=== PATIENT | male | born 1985 | race American Indian/Alaskan Native ===

== ENCOUNTER 2021-10-14 11:14 | Outpatient (REF) | payer OTHER, SELFPAY ==
[2021-10-14 14:44] LABS: Alanine Aminotransferase 32 U/L (0-40); Albumin Level 4.6 g/dL (3.5-5.0); Alkaline Phosphatase 73 U/L (39-117); Anion Gap 14 (12-20); Aspartate Amino Transferase 19 U/L (5-37); Bilirubin Total 0.4 mg/dL (0.0-1.0); Blood Urea Nitrogen 17 mg/dL (9-16); Calcium 9.7 mg/dL (8.4-10.2); Carbon Dioxide 25 mmol/L (22-29); Chloride 107 mmol/L (96-108); Cholesterol 256 mg/dL; Estimated Glomerular Filt Rate > 60; Glucose Fasting 109 mg/dL (60-99); HDL Cholesterol 50 mg/dL; LDL Cholesterol Calculated 173 mg/dl; Potassium 4.8 mmol/L (3.3-5.1); Sodium 141 mmol/L (135-145); Total Protein 7.6 g/dL (6.5-8.0); Triglycerides 166 mg/dL
[2021-10-14 14:48] LABS: Syphilis Screen Nonreactive (Nonreactive)
[2021-10-14 14:49] LABS: TSH reflex Free T4 0.38 uIU/mL (0.32-4.0)
[2021-10-15 08:52] LABS: HBS Num1 11.32 mIU/mL (0-7.99); ~Hepatitis C Antibody Nonreactive (Nonreactive)
[2021-10-15 09:09] LABS: HBc Num1 0.06 S/CO (0.00-0.79); HBsAGNum1 0.25 S/CO (0.00-0.99); HIV AB/AG Nonreactive (Nonreactive); HIV Num 1 0.07 S/CO (0.00-0.99); Hepatitis B Core Antibody Nonreactive (Nonreactive); Hepatitis B Surface Antigen Negative (Negative)
[2021-10-15 10:45] LABS: HBS Num2 10.58 mIU/mL (0-7.99); HBS Num3 10.85 mIU/mL (0-7.99); ~Hepatitis B Surface Antibody GRAYZONE (Nonreactive)
== END 2021-10-14 11:15 | disposition home or self-care (01) ==
LOC: HO.WFDLDS 11:14
PROVIDERS: Visit Provider Family Medicine
DX: Z00.00 Encounter for general adult medical examination without abnormal findings (principal); Z11.4 Encounter for screening for human immunodeficiency virus [HIV]
CPT/HCPCS: 36415; 80053; 80061; 84443; 86704; 86706; 86780; 86803; 87340; 87389

== ENCOUNTER 2021-11-05 09:57 | Outpatient (REF) | payer OTHER, SELFPAY ==
[2021-11-05 11:45] LABS: Estimated Average Glucose 105 mg/dL; Hemoglobin A1c % 5.3 %
[2021-11-05 12:00] LABS: Anion Gap 10 (12-20); Blood Urea Nitrogen 18 mg/dL (9-16); Calcium 9.7 mg/dL (8.4-10.2); Carbon Dioxide 28 mmol/L (22-29); Chloride 107 mmol/L (96-108); Estimated Glomerular Filt Rate > 60; Glucose Fasting 99 mg/dL (60-99); Potassium 4.1 mmol/L (3.3-5.1); Sodium 141 mmol/L (135-145)
[2021-11-11 14:21] LABS: Testosterone, Free 93.6 pg/mL (35.0-155.0); Testosterone, Total 373 ng/dL (250-1100)
== END 2021-11-05 09:58 | disposition home or self-care (01) ==
LOC: HO.WFDLDS 09:57
PROVIDERS: Visit Provider Family Medicine
DX: R53.83 Other fatigue (principal); R73.01 Impaired fasting glucose
CPT/HCPCS: 36415; 80048; 83036; 84402; 84403

== ENCOUNTER 2023-01-20 11:30 | Outpatient (REF) | payer BC, SELFPAY | END 2023-01-20 11:31 | disposition home or self-care (01) | LOC: HO.LNP 11:30 | PROVIDERS: Visit Provider Hospitalist | DX: Z13.89 Encounter for screening for other disorder (principal) ==

== ENCOUNTER 2023-01-21 08:10 | Outpatient (REF) | payer BC, SELFPAY ==
[2023-01-21 12:59] LABS: Influenza A PCR POSITIVE (Negative); Influenza B PCR NEGATIVE (Negative); Resp Syncy Virus RNA Qual PCR NEGATIVE (Negative); SARS COV2 PCR INHOUSE NEGATIVE (Negative)
== END 2023-01-21 08:11 | disposition home or self-care (01) ==
LOC: HO.LNP 08:10
PROVIDERS: Visit Provider Hospitalist
DX: R06.00 Dyspnea, unspecified (principal); R50.9 Fever, unspecified; Z20.822 Contact with and (suspected) exposure to COVID-19
CPT/HCPCS: 0241U

== ENCOUNTER 2023-02-18 09:53 | Outpatient (REF) | payer BC, SELFPAY ==
[2023-02-18 11:33] LABS: Appearance Urine Clear; Color Urine Yellow; Glucose Urine UA Negative (Negative); Leukocyte Esterase Urine Negative (Negative); Nitrite Urine Negative (Negative); Specific Gravity - Urine 1.015 (1.005-1.025); Urine Blood Negative (Negative); Urine Ketones Negative (Negative); Urine Protein Negative (Neg-Trace)
[2023-02-18 12:22] LABS: Alanine Aminotransferase 24 U/L (0-40); Albumin Level 4.5 g/dL (3.5-5.0); Alkaline Phosphatase 71 U/L (39-117); Anion Gap 11 (12-20); Aspartate Amino Transferase 18 U/L (5-37); Bilirubin Total 0.8 mg/dL (0.0-1.0); Blood Urea Nitrogen 13 mg/dL (9-16); Calcium 9.3 mg/dL (8.4-10.2); Carbon Dioxide 28 mmol/L (22-29); Chloride 106 mmol/L (96-108); Cholesterol 238 mg/dL; Estimated Glomerular Filt Rate > 60; Glucose Fasting 93 mg/dL (60-99); HDL Cholesterol 42 mg/dL; LDL Cholesterol Calculated 165 mg/dl; Potassium 4.1 mmol/L (3.3-5.1); Sodium 141 mmol/L (135-145); Total Protein 7.1 g/dL (6.5-8.0); Triglycerides 155 mg/dL
[2023-02-18 12:25] LABS: TSH reflex Free T4 0.69 uIU/mL (0.32-4.0)
[2023-02-18 12:33] LABS: Creatinine Urine 178.92 mg/dL; Microalbum/Creatinine Ratio Ur 10.6 ug/mg cr
== END 2023-02-18 09:54 | disposition home or self-care (01) ==
LOC: HO.WFDLDS 09:53
PROVIDERS: Visit Provider Family Medicine
DX: Z00.00 Encounter for general adult medical examination without abnormal findings (principal); I10 Essential (primary) hypertension
CPT/HCPCS: 36415; 80053; 80061; 81003; 82043; 84443

== ENCOUNTER 2023-07-27 08:20 | Outpatient (AMB) | payer BC, SELFPAY ==
--- NOTE | 2023-07-27 08:26 | AM.OFFWIN_ITS ---
Intake Vital Signs 07/27/23 08:33 Height 5 ft 6 in Weight 200 lb BMI 32.3 BP 132/88 Blood Pressure Location Lt brachial Position Sitting Respiration 15 Pulse 85 Pulse Source Pulse Oximeter Temp 98.5 F Temp Source Oral Pulse Oximetry (%) 97 Oxygen Delivery Method Room Air Intake Visit Reasons: fever, cough [phone] Intake Note: Patient presents with fever, cough, and fatigue for more than 7 days. Patient reports he has tried tylenol, advil, nyquil, dayquil, and robitussin with no relief. Patient Tobacco Use Status: Current someday Tobacco user Saturation Diver Required: No Allergies bee venom protein (honey bee) Allergy (Severe, Verified 07/27/23 08:36) Swelling HPI fever, cough [phone] HPI Details 38 y/o male presents with complaints of fever/cough. He reports symptoms for more than 7 days. HPI Comments History of Present Illness Details Documentation assistance for Al Zhao MD, was provided by Prasad Cade, Station Helper on 07/27/2023 8:53 AM WADE. I, Dr. Zhao, have read, observed, and verified documentation. [facility] Medical History ADD (attention deficit disorder) Asthma Social History Housing: House Alcohol intake: current Alcohol intake frequency: holidays/special occasions on ly Patient Tobacco Use Status: Current someday Tobacco user Tobacco use type: Cigarette Cigarettes Per Day: 0.5 e-Cigarette/Vaping Use: Never Used Current occupational status: employed Review of Systems Const Denies chills, Reports fatigue, Reports fever(s), Denies headache(s) and Denies weakness ENT Denies dizziness and Denies headache(s) Card Denies chest pain, Denies lightheadedness, Denies dyspnea and Denies other (Palpitations) Resp Reports cough, Denies dyspnea, Denies wheezing and Denies other ( shortness of breath) Musc Denies numbness and Denies tingling Neuro Denies dizziness, Denies headache(s), Denies numbness, Denies tingling, Denies paresthesias and Denies weakness Psych Denies anxiety and Denies depression Endo Reports fatigue Aller/Immun Denies wheezing Physical Exam Vital Signs: Last Vital Signs Temp 98.5 F 07/27/23 08:33 Pulse 85 07/27/23 08:33 Resp 15 07/27/23 08:33 BP 132/88 07/27/23 08:33 Pulse Ox 97 07/27/23 08:33 Oxygen Delivery Method Room Air 07/27/23 08:33 BMI result Body Mass Index 32.3 Const General: no acute distress and well developed Nutritional Appearance: well nourished Orientation/consciousness: patient oriented x3 HEENT Head: Yes normocephalic and Yes atraumatic Eyes General: appearance normal, both eyes and all related structures Pupils: Equal, round and reactive pupils present EOM: EOMs intact bilaterally Resp Other: Pops and squeaks in lower lung mcgregor Effort & Inspection: normal respiratory effort Cardio Rate: regular rate Rhythm: regular rhythm Heart sounds: S1 normal heart sound present, S2 normal heart sound present, no gallops, no murmurs and no rubs Neuro General: patient oriented x3 and gait normal Cranial nerves: Yes Equal, round and reactive pupils present Psych Affect: normal affect Assessment & Plan Assessment & Plan (1) Abnormal lung sounds: Code(s): R09.89 - Other specified symptoms and signs involving the circulatory and respiratory systems Plan: Coarse breath sounds throughout and abnormal lung sounds at left base Possible pneumonia Possible bronchitis Will give patient script for a Z-Paramjit and prednisone Checking chest x-ray Keep patient out of work for this week Also has testing for COVID/flu/RSV now pending (2) Viral illness: Code(s): B34.9 - Viral infection, unspecified Plan: Possible underlying viral illness As above, checking COVID/flu/RSV Orders: Orders SARS-CoV2/FLU/RSV Today B34.9 - Viral infection, unspecified, Z20.822 - Contact with and (suspected) exposure to COVID-19 XR chest 2V Today R09.89 - Other specified symptoms and signs involving the circulatory and respiratory systems Medications: New azithromycin (Zithromax Z-Paramjit) take 500 mg today (day 1), then 250 mg for 4 days (days 2-5) PO 6 tabs 0RF 5 days prednisone 40 mg (2 x 20 mg) PO DAILY 8 tabs 0RF 4 days Coding Level of Care Code Est Pt Level 3 (70783) Diagnoses Abnormal lung sounds R09.89 Viral illness B34.9
[2023-07-27 08:33] VITALS: BP 132/88; PULSE 85; RESP 15; TEMP 36.9; O2SAT 97; BMI 32.3
== END 2023-07-27 09:11 | disposition home or self-care (01) ==
PROVIDERS: PCP Family Medicine; Visit Provider Family Medicine
DX: R09.89 Other specified symptoms and signs involving the circulatory and respiratory systems (principal); B34.9 Viral infection, unspecified
CPT/HCPCS: 99213

== ENCOUNTER 2023-07-27 08:59 | Outpatient (REF) | payer BC, SELFPAY ==
[2023-07-27 12:22] LABS: Influenza A PCR NEGATIVE (Negative); Influenza B PCR NEGATIVE (Negative); Resp Syncy Virus RNA Qual PCR NEGATIVE (Negative); SARS COV2 PCR INHOUSE NEGATIVE (Negative)
== END 2023-07-27 09:00 | disposition home or self-care (01) ==
LOC: HO.LAB 08:59
PROVIDERS: Visit Provider Family Medicine
DX: Z20.828 Contact with and (suspected) exposure to other viral communicable diseases (principal); B34.9 Viral infection, unspecified
CPT/HCPCS: 0241U

== ENCOUNTER 2023-07-27 09:41 | Outpatient (REF) | payer BC, SELFPAY ==
--- NOTE | ~2023-07-27 | XR_ITS ---
EXAMINATION: XR CHEST CLINICAL INFORMATION: R09.89 - Other specified symptoms and signs involving the circulatory an... COMPARISON: None available. TECHNIQUE: 2 views of the chest were obtained. FINDINGS: No significant abnormality is noted involving the heart, lungs, mediastinum, bony thorax or soft tissues. XR/XR chest 2V IMPRESSION: Unremarkable examination.
== END 2023-07-27 09:42 | disposition home or self-care (01) ==
LOC: HO.XRAY 09:41
PROVIDERS: PCP Family Medicine; Visit Provider Family Medicine
DX: R09.89 Other specified symptoms and signs involving the circulatory and respiratory systems (principal)
CPT/HCPCS: 71046

== ENCOUNTER 2024-06-10 10:34 | Outpatient (AMB) | payer BC, SELFPAY ==
--- NOTE | 2024-06-10 11:47 | MHC.OFFWIV ---
Intake Vital Signs 06/10/24 11:50 Height 5 ft 5.79 in Weight 200 lb 6 oz BMI 32.5 BP 124/80 Blood Pressure Location Lt brachial Position Sitting Pulse 64 Pulse Source Pulse Oximeter Temp 98.3 F Temp Source Oral Pulse Oximetry (%) 97 Oxygen Delivery Method Room Air Intake Visit Reasons: est/ ear infection Intake Note: R/O right ear infection Patient Tobacco Use Status: Never used Tobacco Allergies bee venom protein (honey bee) Allergy (Severe, Verified 06/10/24 11:48) Swelling Medication List - Last Reconciled 06/10/24 by Trisha Doyle, [facility] albuterol sulfate 90 mcg/actuation (ProAir HFA) 2 puffs inhalation Q4-6H PRN 30 days dextroamphetamine-amphetamine 30 mg (Adderall) 30 mg PO BID epinephrine (EpiPen 2-Paramjit) 0.3 mg (0.3 mL) IM Q10M PRN 30 days omeprazole 20 mg PO DAILY 30 days sertraline (Zoloft) 50 mg PO BID Do you need a note to return to daycare/school/sports/work: No HPI HPI Comments History of Present Illness Details 39-YEAR-OLD MALE HERE TODAY IN THE WALK-IN WITH SEVERAL COMPLAINTS. First complaint is that of right ear pain that started a few weeks ago after becoming ill with an upper respiratory illness. He reports chronic and recurrent ear infections on the right side. He was followed by ENT in the past. He had some leftover antibiotics which he started to take over the last few days and has had some improvement in his symptoms. He is daily swimmer. Complains of obesity. Worried about his BMI being over 30. Brings in a pamphlet for Ozempic and wants to know if he is eligible to use this medication. Made aware that his BMI does not make him a candidate, educated about BMI. Encouraged healthy lifestyle and discouraged use of Ozempic. Asked if he could buy [id number] advised that there are people online schooling this product but I am unable to validate the quality of the products that he would be receiving. Finally he complains of chronic neck pain and tension associated with headaches related to stress. He has tried chiropractic medicine as well as massage in the past without relief. Takes ibuprofen 800 mg with some relief. Has used muscle relaxer in the past with positive effect. Denies neuro red flag symptoms exam: Awake alert NAD Sclera and conjunctiva clear bilat TM intact, bulging w/ loss of landmarks, diffuse erythema and purulence on R, EAC with edema and erythema. TM on left intact w mild injection, EAC clear Neck FROM [employer] build Plan: Augmentin and steroid eardrops for the otitis media. Education provided for obesity. Meloxicam and muscle relaxer for his neck pain. This note is constructed using voice recognition software. While every effort has been made to ensure accuracy in psychology assistant, still errors may have been included Sometimes, these errors may affect the content or meaning of the given sentence . [facility] Medical History ADD (attention deficit disorder) Asthma Social History Housing: House Alcohol intake: current Alcohol intake frequency: holidays/special occasions only Patient Tobacco Use Status: Never used Tobacco Tobacco use type: Cigarette Cigarettes Per Day: 0.5 e-Cigarette/Vaping Use: Never Used Current occupational status: employed Physical Exam Vital Signs: Last Vital Signs Temp 98.3 F 06/10/24 11:50 Pulse 64 06/10/24 11:50 BP 124/80 06/10/24 11:50 Pulse Ox 97 06/10/24 11:50 Oxygen Delivery Method Room Air 06/10/24 11:50 BMI result Body Mass Index 32.5 Assessment & Plan Assessment & Plan (1) Otitis media: Code(s): H66.90 - Otitis media, unspecified, unspecified ear Qualifiers: Otitis media type: mucoid Chronicity: acute Laterality: right Qualified Code(s): H65.191 - Other acute nonsuppurative otitis media, right ear (2) Tension headache, chronic: Code(s): G44.229 - Chronic tension-type headache, not intractable Qualifiers: Intractability: not intractable Qualified Code(s): G44.229 - Chronic tension-type headache, not intractable (3) Obesity, Class I, BMI 30-34.9: Code(s): E66.9 - Obesity, unspecified Plan: . Plan . Medications: New meloxicam 15 mg PO DAILY PRN 14 tabs 0RF pain dexamethasone 0.1% USE IN EAR 1 drp otic (ear) right BID 5 days 5 mL 0RF amoxicillin-pot clavulanate 875-125 mg 1 tab PO Q12H 10 days 20 tabs 0RF tizanidine (Zanaflex) 4 mg PO BEDTIME PRN 7 tabs 0RF muscle spasticity Coding Level of Care Code Est Pt Level 4 (62470) Diagnoses Acute mucoid otitis media of right ear H65.191 Otitis media type: mucoid Chronicity: acute Laterality: right Chronic tension-type headache, not intractable G44.229 Intractability: not intractable Obesity, Class I, BMI 30-34.9 E66.9
[2024-06-10 11:50] VITALS: BP 124/80; PULSE 64; TEMP 36.8; O2SAT 97; BMI 32.5
== END 2024-06-10 12:24 | disposition home or self-care (01) ==
PROVIDERS: PCP Family Medicine; Visit Provider Nurse Practitioner Family
DX: H65.191 Other acute nonsuppurative otitis media, right ear (principal); G44.229 Chronic tension-type headache, not intractable; E66.9 Obesity, unspecified; Z68.32 Body mass index [BMI] 32.0-32.9, adult
CPT/HCPCS: 99214

== ENCOUNTER 2025-04-26 11:29 | Outpatient (AMB) | payer BC, SELFPAY ==
--- NOTE | 2025-04-26 11:41 | MHC.PC.OV ---
Vital Signs 04/26/25 11:52 Height 5 ft 5.79 in Weight 193 lb BMI 31.3 BP 128/78 Blood Pressure Location Lt brachial Position Sitting Respiration 18 Pulse 87 Pulse Source Pulse Oximeter Temp 98.4 F Temp Source Oral Pulse Oximetry (%) 97 Oxygen Delivery Method Room Air Intake Visit Reasons: Problems Breathing Intake Note: patient is here to have glp-1 script transferred to pcp care Chip Separator Required: No Allergies bee venom protein (honey bee) Allergy (Severe, Verified 04/26/25 11:52) Swelling Medication List - Last Reconciled 04/26/25 by Al Zhao MD albuterol sulfate 90 mcg/actuation (ProAir HFA) 2 puffs inhalation Q4-6H PRN 30 days dextroamphetamine-amphetamine 30 mg (Adderall) 30 mg PO BID epinephrine (EpiPen 2-Paramjit) 0.3 mg (0.3 mL) IM Q10M PRN 30 days meloxicam 15 mg PO DAILY PRN omeprazole 20 mg PO DAILY 30 days semaglutide (weight loss) (Wegovy) 0.5 mg subcut QWEEK tizanidine (Zanaflex) 4 mg PO BEDTIME PRN Tobacco use date assessed: 10/14/21 HPI Problems Breathing HPI Details 40 y/o male presents today for a CPE with f/u labs and health maintenance. Pt is on Wegovy for his obesity. Currently on 0.5mg. Pt reports some difficulty breathing and does note hx of asthma. Reports R ankle pain. HPI Comments History of Present Illness Details Documentation assistance for Al Zhao MD, was provided by Prasad Cade,? Bailing Machine Operator on 04/26/2025 at 12:06 PM WADE. I, Dr. Zhao, have read, observed, and verified documentation. ? PFSH Medical History ADD (attention deficit disorder) Asthma Social History Housing: House Alcohol intake: current Alcohol intake frequency: holidays/special occasions only Patient Tobacco Use Status: Never used Tobacco Tobacco use type: Cigarette Cigarettes Per Day: 0.5 e-Cigarette/Vaping Use: Never Used Current occupational status: employed Questionnaire PHQ-9 Over the last 2 weeks, how often have you been bothered by any of the following problems? 1. Little interest or pleasure in doing things: not at all 2. Feeling down, depressed, or hopeless: not at all 3. Trouble falling or staying asleep, or sleeping too much: several days 4. Feeling tired or having little energy: several days 5. Poor appetite or overeating: several days 6. Feeling bad about yourself - or that you are a failure or have let yourself or your family down: not at all 7. Trouble concentrating on things, such as reading the newspaper or watching television: several days 8. Moving or speaking so slowly that other people could have noticed. Or the opposite - being so fidgety or restless that you have been moving around a lot more than usual: not at all 9. Thoughts that you would be better off or of hurting yourself in some way: not at all Total score: 4 Source: Developed by Drs. Dionte Charles, Martha Wheat, Michael Montano and colleagues, with an educational boo from [employer]. Thrive Questionnaire Date Thrive assessed: 10/14/21 I am a: Patient What is your living situation today?: I have a steady place to live Within the past 12 months, did the food you bought not last and you didn't have the money to get more?: Never true Within the past 12 months, did you worry whether your food would run out before you got money to buy more?: Never true Do you have trouble paying for medicines?: No Do you have trouble getting transportation to medical appointments?: No Do you have trouble paying your heating and electricity bill?: No Do you have trouble taking care of your child, family member or friend?: No Do you have trouble with day-to-day activities such as bathing, preparing meals, shopping, managing finances, etc.?: No Are you currently unemployed and looking for a job?: No Are you interested in more education?: No Please select the resources that you would like help with: None Currently or been in a relationship where the following occur: No concerns reported THRIVE Score: 0 AUDIT C Alcohol Use Questionnaire (AUDIT-C) 1. How often do you have a drink containing alcohol?: 2-4 times a month 2. How many drinks containing alcohol do you have on a typical day when you are drinking?: 1 or 2 3. How often do you have six or more drinks on one occasion?: Less than monthly Total Score: 3 RAHCELLE-7 AMB Questionnaire RACHELLE-7 Date RACHELLE - 7 assessed: 10/14/21 Feeling nervous, anxious, or on edge: 0 = Not at all Not being able to stop or control worryin = Not at all Worrying too much about different things: 0 = Not at all Trouble relaxin = Not at all Being so restless that it is hard to sit still: 0 = Not at all Becoming easily annoyed or irritable: 0 = Not at all Feeling afraid as if something awful might happen: 0 = Not at all Total RACHELLE-7 score (0-4 normal; 5-9 mild; 10-14 moderate; 15-21 severe): 0 Source: Developed by Drs. Dionte Charles, Martha Wheat, Michael Montano and colleagues, with an educational boo from [employer]. Review of Systems Const Denies chills, Denies fatigue, Denies fever(s), Denies headache(s) and Denies weakness Eyes Denies change in vision ENT Denies dizziness, Denies headache(s), Denies hearing loss, Denies nasal congestion, Denies sinus pain, Denies sinus pressure and Denies sore throat Card Denies chest pain, Denies lightheadedness, Denies dyspnea and Denies other (palpitations) Resp Denies cough, Denies dyspnea and Denies wheezing GI Denies abdominal pain, Denies melena, Denies hematochezia, Denies change in bowel habits, Denies dyspepsia and Denies nausea Denies hematuria and Denies dysuria Musc Denies abnormal gait, Denies myalgias, Denies arthralgias, Denies numbness and Denies tingling Skin/Breast Denies rash, Denies unusual bruising and Denies wounds Neuro Denies abnormal gait, Denies dizziness, Denies headache(s), Denies memory loss, Denies numbness, Denies Sensory deficit (Neuro), Denies tingling and Denies weakness Psych Denies anxiety, Denies depression and Denies memory loss Endo Denies cold intolerance, Denies fatigue, Denies heat intolerance, Denies polydipsia and Denies polyuria Sukhdev/Lymph Denies easy bleeding and Denies easy bruising Aller/Immun Denies wheezing Physical exam (Primary Care) Vital Signs: Last Vital Signs Temp 98.4 F 04/26/25 11:52 Pulse 87 04/26/25 11:52 Resp 18 04/26/25 11:52 BP 128/78 04/26/25 11:52 Pulse Ox 97 04/26/25 11:52 Oxygen Delivery Method Room Air 04/26/25 11:52 BMI result Body Mass Index 31.3 Tobacco/Smoking Status: Tobacco use Status Tobacco use date assessed 10/14/21 04/26/25 11:42 Patient Tobacco Use Status Never used Tobacco 04/26/25 11:42 Tobacco use type Cigarette 04/26/25 11:42 e-Cigarette/Vaping Use Never Used 04/26/25 11:42 PHQ-9: PHQ-9 Score PHQ-9: Total score 4 04/26/25 11:57 Thrive Assessment: Date of Thrive Assessment Date Thrive assessed 10/14/21 04/26/25 11:42 Currently or been in a relationship where the following occur: No concerns reported Const General: no acute distress, well developed, alert and awake Nutritional Appearance: well nourished Orientation/consciousness: patient oriented x3 HENMT Head: Yes normocephalic and Yes atraumatic Ears: hearing grossly normal bilaterally and TM's normal bilaterally General nose exam: Normal external nose present and Normal nares present Mouth: Normal oral and palatal mucosa present and moist mucous membranes Teeth and gingiva: dentition normal Throat: Yes posterior oropharynx normal Eyes General: appearance normal, both eyes and all related structures Pupils: Equal, round and reactive pupils present and Pupil accommodation reflex normal EOM: EOMs intact bilaterally Neck Neck: Yes normal visual inspection, Yes no lymphadenopathy and Yes trachea midline Thyroid: Thyroid normal Carotids: no bruits Lymphatic: no lymphadenopathy noted Chest Chest palpation & inspection: normal inspection of the chest Resp Other: Coarse breath sounds Effort & Inspection: normal respiratory effort Auscultation: clear to auscultation bilaterally Cardio Rate: regular rate Rhythm: regular rhythm Heart sounds: S1 normal heart sound present, S2 normal heart sound present, no gallops, no murmurs and no rubs Bruits: no abdominal aortic bruits and no carotid bruits GI Palpation (GI): No Abdominal aortic bruit present, Soft to palpation, nontender, No hepatosplenomegaly present and No Rebound tenderness present Auscultation: normal bowel sounds General: Yes no CVA tenderness Back/Spine/Pelvis Back: no CVA tenderness Cervical Spine: cervical ROM normal and No Cervical spine tenderness Thoracic/Lumbar Spine: thoraco-lumbar ROM normal, No pain with thoraco-lumbar ROM, No thoracic spinal tenderness and No lumbar spinal tenderness Skin Lesions: no lesions Rashes: no rashes Trauma: no lacerations or abrasions Wounds: no wounds Nails: normal Neuro General: patient oriented x3 Cranial nerves: Yes Equal, round and reactive pupils present Cognition (Neuro): normal cognition Gait exam (Neuro): Normal gait present Motor exam (neuro): 5/5 motor strength present throughout Sensory Exam: No Sensory deficit (Neuro) Deep tendon reflexes (DTR's): Right patellar reflex intensity grade: 2+ and Left patellar reflex intensity grade: 2+ Extrem General: Yes normal to inspection and No edema Psych Appearance: grossly normal Affect: normal affect Attitude: cooperative Thought process: Normal thought process present Coding Level of Care Code Est Pt Level 3 (32816) Est Pt Prev Care 40-64y(26015) Diagnoses Adult general medical exam Z00.00 Asthma J45.909 Right ankle pain M25.571 Obesity, Class I, BMI 30-34.9 E66.9 Screening for prostate cancer Z12.5 Assessment & Plan Assessment & Plan (1) Adult general medical exam: Code(s): Z00.00 - Encounter for general adult medical examination without abnormal findings Category: Medical Plan: 40-year-old?male?presents?for?complete?physical?exam Encouraged?healthy?diet?with?active?lifestyle?and?plenty?of?exercise (2) Asthma: Code(s): J45.909 - Unspecified asthma, uncomplicated Category: Medical Plan: Patient?notes?numerous?exacerbations Lungs?are?clear?today Continue?inhaled?medications?as?prescribed Referred?to?pulmonology?at?patient?request (3) Right ankle pain: Code(s): M25.571 - Pain in right ankle and joints of right foot Category: Medical Plan: Ankle?pain?with?likely?tendinous?strain?and?some superficial?vessel?injury/varicosities causing?discoloration. 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 Panel Fast Today Z00.00 - Encounter for general adult medical examination without abnormal findings Complete Blood Count Auto Diff Today Z00.00 - Encounter for general adult medical examination without abnormal findings Microalbumin, Random (w Creat) Today I10 - Essential (primary) hypertension Prostate Specific Antigen Scr Today Z12.5 - Encounter for screening for malignant neoplasm of prostate Lipid Panel Today Z00.00 - Encounter for general adult medical examination without abnormal findings TSH reflex Free T4 Today Z00.00 - Encounter for general adult medical examination without abnormal findings UA CC w/rflx Micro + Cult Today Z00.00 - Encounter for general adult medical examination without abnormal findings Referrals Pulmonology Referral J41.455 - Unspecified asthma, uncomplicated Medications: New semaglutide (weight loss) administer weeks 5 through 8 of therapy 1 mg (0.5 mL) subcut QWEEK 28 days 2 mL 3RF
[2025-04-26 11:52] VITALS: BP 128/78; PULSE 87; RESP 18; TEMP 36.9; O2SAT 97; BMI 31.3
== END 2025-04-26 12:19 | disposition home or self-care (01) ==
LOC: HO.HMCFM 11:29
PROVIDERS: PCP Family Medicine; Visit Provider Family Medicine
DX: Z00.00 Encounter for general adult medical examination without abnormal findings (principal); J45.909 Unspecified asthma, uncomplicated; E66.9 Obesity, unspecified; Z68.31 Body mass index [BMI] 31.0-31.9, adult; M25.571 Pain in right ankle and joints of right foot; Z12.5 Encounter for screening for malignant neoplasm of prostate

== ENCOUNTER → 2025-04-26 11:29 | Outpatient (BNVA) | payer BC, SELFPAY | PROVIDERS: PCP Family Medicine; Visit Provider Family Medicine | DX: Z13.89 Encounter for screening for other disorder (principal) ==

== ENCOUNTER 2025-06-21 13:41 | Outpatient (AMB) | payer BC, SELFPAY ==
--- OUTSIDE RECORDS SUMMARY | 2024-12-04 11:19 | XMS_ITS | Encounter Summary ---
Author Organization [facility] Address [address] [facility] [address] [place] [phone] Phone Care Team Providers Care Vacuum Caster Name Role Phone Al Zhao MD Primary Care Provider Encounter Details Date Type Department Care Team (Late st Contact Info) Description 12/04/2024 10:19 AM EST Hospital Encounter [facility] [address] [place] [id number] Alpa Archibald, COMPUTER SCIENCE PROFESSOR [address] [place] [address] [email or web address] Social History Tobacco Use Types Packs/Day Years [...] originally createdby Scot Victoria MD. Alpa Archibald COMPUTER SCIENCE PROFESSOR IMG XR CHEST Final Result documented in this encounter Visit Diagnoses Not on filedocumented in this encounter Additional Health Concerns Infection Onset Date Last Indicated Resolved Time CoV-Risk 12/04/2024 12/04/2024 12/15/2024 1:23 AM EST CoV-Risk 12/27/2024 12/27/2024 01/07/2025 1:22 AM EST Influenza B 12/27/2024 12/27/2024 01/03/2025 1:22 AM EST documented as of this encounter Care Teams Vacuum Caster Relationship Specialty Start Date End Date Al Zhao MD [address] [place] [address] PCP - General Family Medicine 09/28/23 documented as of this encounter Additional Source Comments The information contained in this document represents components of the legal health record. It is not the complete legal health record.[facility]
--- NOTE | 2025-06-21 13:46 | MHC.OFFVIS ---
Vital Signs 06/21/25 14:04 Height 5 ft 6 in Weight 193 lb BMI 31.1 BP 122/68 Blood Pressure Location Rt brachial Position Sitting Pulse 89 Pulse Source Pulse Oximeter Pulse Oximetry (%) 98 Oxygen Delivery Method Room Air Intake Visit Reasons: Asthma Director Investor Relations Required: No Floor Scrubber: Floor Scrubber offered & declined Accompanied by: Self / Same As Patient Allergies bee venom protein (honey bee) Allergy (Severe, Verified 06/21/25 14:05) Swelling Medication List - Last Reconciled 06/21/25 by Rosa Rose LPN albuterol sulfate 90 mcg/actuation (ProAir HFA) 2 puffs inhalation Q4-6H PRN 30 days dextroamphetamine-amphetamine 30 mg (Adderall) 30 mg PO BID epinephrine (EpiPen 2-Paramjit) 0.3 mg (0.3 mL) IM Q10M PRN 30 days meloxicam 15 mg PO DAILY PRN omeprazole 20 mg PO DAILY 30 days semaglutide (weight loss) 1 mg (0.5 mL) subcut QWEEK 28 days tizanidine (Zanaflex) 4 mg PO BEDTIME PRN HPI HPI Asthma: Details: Shabbir is a pleasant 40-year-old male, former smoker, with underlying asthma, hyperlipidemia, anxiety and depression. He is referred by PCP for management of asthma. He was diagnosed with asthma as a child, never requiring intubation/hospitalizations related to respiratory distress. Previously using daily inhaler however reports inconsistent use of respiratory therapy and difficulty with compliance. He currently has albuterol MDI however and continues with dry cough and dyspnea. He reports prior h/o recurrent respiratory infections late 20s early 30s with bronchitis/PNA every fall and spring. He also has required multiple courses of prednisone previously for exacerbations. He endorses seasonal allergies, no recent allergy testing. He denies any occupational exposures, although was in the x 4 years. He was adopted unknown family history however recently found out biological father had emphysema. Recent CXR unremarkable. [facility], LAT[facility] Medical History ADD (attention deficit disorder) Asthma Social History Housing: House Alcohol intake: current Alcohol intake frequency: holidays/special occasions only Patient Tobacco Use Status: Never used Tobacco Tobacco use type: Cigarette Cigarettes Per Day: 0.5 e-Cigarette/Vaping Use: Never Used Current occupational status: employed Review of Systems Const Denies chills, Denies excessive sweating, Denies fever(s), Denies headache(s) and Denies night sweats Eyes Denies dry eyes, Denies irritation and Denies itchy eyes ENT Reports Normal hearing present, Denies headache(s), Denies nasal congestion, Denies nasal discharge, Denies post nasal drip and Denies sore throat Card Denies chest pain, Denies chest pain at rest, Denies chest pain with activity, Denies claudication, Denies leg edema, Denies orthopnea and Denies paroxysmal nocturnal dyspnea Resp Denies chest congestion, Denies excessive phlegm production, Denies pain on inspiration, Denies pain with cough, Denies stridor and Denies wheezing Musc Denies myalgias Neuro Reports Normal hearing present and Denies headache(s) Endo Denies excessive sweating Sukhdev/Lymph Denies lymphadenopathy Aller/Immun Denies itchy eyes, Denies seasonal rhinorrhea and Denies wheezing Physical Exam Vital Signs: Last Vital Signs Pulse 89 06/21/25 14:04 BP 122/68 06/21/25 14:04 Pulse Ox 98 06/21/25 14:04 Oxygen Delivery Method Room Air 06/21/25 14:04 BMI result Body Mass Index 31.1 Const General: cooperative, healthy appearing, comfortable, no acute distress, well developed and alert Orientation/consciousness: patient oriented x3 Limitations: no limitations HEENT Head: Yes normal to inspection, Yes normocephalic and Yes atraumatic Ears: hearing grossly normal bilaterally and external ears normal Eyes General: appearance normal, both eyes and all related structures Eyelids: Yes eyelids normal Sclerae: sclerae normal EOM: EOMs intact bilaterally Neck Neck: Yes normal visual inspection and Yes no lymphadenopathy Lymphatic: no lymphadenopathy noted Chest Chest palpation & inspection: normal inspection of the chest Resp Effort & Inspection: normal respiratory effort, able to speak in complete sentences, no audible wheezes, no cough, no stridor, not tachypneic, no tripod positioning and no use of accessory muscles Auscultation: clear to auscultation bilaterally Cardio Jugular venous distension: no JVD Rate: regular rate Rhythm: regular rhythm Skin Other: warm, dry General skin exam: no rashes or lesions noted Neuro General: patient oriented x3 Cranial nerves: Yes Normal hearing present Cognition (Neuro): normal cognition Gait exam (Neuro): Normal gait present Extrem General: Yes normal to inspection, Yes capillary refill normal, Yes no clubbing, cyanosis or edema and Yes no pedal edema Psych Appearance: grossly normal and well kempt Speech and movement: Normal speech and movement present and Clear speech present Affect: normal affect Attitude: cooperative Thought process: Normal thought process present Thought content: Normal thought content present Insight: Good insight present (Psych) Judgement: Good judgement present (Psych) Assessment & Plan Assessment & Plan (1) Asthma: Code(s): J45.909 - Unspecified asthma, uncomplicated Category: Medical (2) Seasonal allergies: Code(s): J30.2 - Other seasonal allergic rhinitis Category: Medical Plan Shabbir presents for pulmonary evaluation with known history of asthma. Will send for PFT to assess severity of obsructive defect and send for RAST to assess for an allergic component. Patient agreeable to albuterol MDI PRN, will consider ICS/LABA. All questions were answered and patient is in agreement of plan. Will follow up to review results or sooner if needed. Orders: Orders Immunoglobulin E 06/21/25 Z91.09 - Other allergy status, other than to drugs and biological substances Complete Blood Count Auto Diff 06/21/25 Z91.09 - Other allergy status, other than to drugs and biological substances PFT pulmonary function test 06/21/25 J45.909 - Unspecified asthma, uncomplicated Resp Allergy Profile Region I 06/21/25 Z91.09 - Other allergy status, other than to drugs and biological substances Medications: New albuterol sulfate 90 mcg/actuation (Ventolin HFA) 1 inh inhalation Q4-6H PRN 1 ea 0RF shortness of breath or wheezing Discontinued albuterol sulfate 90 mcg/actuation (ProAir HFA) Discontinued Reason: Patient Completed Course 2 puffs inhalation Q4-6H 30 days PRN 8.5 grams 11RF shortness of breath or wheezing J45.909 - Unspecified asthma, uncomplicated Coding Level of Care Code New Pt Level 4 (01827) Diagnoses Asthma J45.909 Seasonal allergies J30.2
[2025-06-21 14:04] VITALS: BP 122/68; PULSE 89; O2SAT 98; BMI 31.1
== END 2025-06-21 14:51 | disposition home or self-care (01) ==
LOC: HO.HPSW 13:42
PROVIDERS: PCP Family Medicine; Referring Provider Family Medicine; Visit Provider Nurse Practitioner Family
DX: J45.909 Unspecified asthma, uncomplicated (principal); J30.2 Other seasonal allergic rhinitis
CPT/HCPCS: 99204

== ENCOUNTER 2025-06-21 14:41 | Outpatient (REF) | payer BC, SELFPAY ==
[2025-06-21 18:10] LABS: MANUAL DIFF FLAG NO
[2025-06-21 18:11] LABS: Hematocrit 44.7 % (42.0-52.0); Hemoglobin 15.1 g/dl (14.0-18.0); Imm Gran Abs Auto 0.01 X10*3/uL (0.00-0.03); Imm Gran Pct Auto 0.2 % (0.0-0.4); Lymphocytes Absolute Auto 2.6 X10*3/uL (1.2-4.9); Mean Corpuscular HGB Conc 33.8 g/dl (31.0-36.0); Mean Corpuscular Hemoglobin 28.5 pg (27.0-33.0); Mean Corpuscular Volume 84.5 fL (80.0-98.0); NRBC Abs Auto 0.000 X10*3/uL (0.0-0.012); NRBC Pct Auto 0.0 /100WBC (0.0-0.2); Platelet Count 308 X10*3/uL (160-400); Red Blood Count 5.29 X10*6/uL (4.60-5.80); White Blood Count 5.6 X10*3/uL (4.8-10.8)
[2025-06-21 18:21] LABS: Appearance Urine Clear; Glucose Urine UA Negative (Negative); PH 6.5 (5.0-9.0); Specific Gravity - Urine 1.020 (1.005-1.025)
[2025-06-21 19:00] LABS: Microalbum/Creatinine Ratio Ur 15.5 ug/mg cr (<30)
[2025-06-27 19:23] LABS: Class Alternaria alternata 0; Class Aspergillus fumigatus 0; Class Bermuda Grass 0; Class Birch 0; Class Cat Dander 0; Class Cladosporium herbarum 0; Class Cockroach 0/1; Class Common Ragweed 0; Class Cottonwood 0; Class Derm. pterony 0; Class Dermatophagoides farinae 0; Class Dog Dander 0; Class Elm 0; Class Maple Box Elder 0; Class Mountain Cedar 0; Class Mouse Urine Protein 0; Class Mugwort 0; Class Oak 0; Class Penicillium crysogenum 0; Class Rough Pigweed 0; Class Sheep Sorrel 0; Class Sycamore 0; Class Timothy Grass 0; Class Walnut Tree 0; Class White Ash 0; Class White Mulberry 0; D002 - IgE D farinae <0.10 kU/L; E001 - IgE Cat Dander <0.10 kU/L; E005 - IgE Dog Dander <0.10 kU/L; G006 - IgE Timothy Grass <0.10 kU/L; I006-IgE Cockroach, German 0.16 kU/L; M002 - IgE Cladosporium herbar <0.10 kU/L; M003 - IgE Aspergillus fumigat <0.10 kU/L; M006 - IgE Alternaria alternat <0.10 kU/L; T001 IgE Maple/Box Elder <0.10 kU/L; T006 - IgE Cedar, Mountain <0.10 kU/L; T007 - IgE Oak, White <0.10 kU/L; T008 IgE Elm, American <0.10 kU/L; T010 - IgE Walnut <0.10 kU/L; T011 - IgE Maple Leaf Sycamore <0.10 kU/L; T014 - IgE Cottonwood <0.10 kU/L; T015 - IgE Ash, White <0.10 kU/L; T070 - IgE White Mulberry <0.10 kU/L; W001 - IgE Ragweed, Short <0.10 kU/L; W006 - IgE Mugwort <0.10 kU/L; W014 IgE Pigweed, Common <0.10 kU/L; W018 IgE Sheep Sorrel <0.10 kU/L
== END 2025-06-21 14:42 | disposition home or self-care (01) ==
LOC: HO.WFDLDS 14:41
PROVIDERS: Referring Provider Family Medicine; Visit Provider Nurse Practitioner Family
DX: Z00.00 Encounter for general adult medical examination without abnormal findings (principal); J45.909 Unspecified asthma, uncomplicated; I10 Essential (primary) hypertension; Z12.5 Encounter for screening for malignant neoplasm of prostate; Z91.09 Other allergy status, other than to drugs and biological substances
CPT/HCPCS: 36415; 81003; 82043; 82570; 82785; 84153; 84443; 85025; 86003

== ENCOUNTER 2025-10-19 07:54 | Outpatient (REF) | payer BC, SELFPAY ==
--- OUTSIDE RECORDS SUMMARY | 2024-12-04 10:19 | XMS_ITS | Encounter Summary ---
Author Organization [facility] Address [address] [facility] [address] [place] [phone] Phone Care Team Providers Care Sample Body Builder Name Role Phone Al Zhao MD Primary Care Provider Encounter Details Date Type Department Care Team (Late st Contact Info) Description 12/04/2024 10:19 AM EST Hospital Encounter [facility] [address] [place] [id number] Alpa Archibald, FOREST ECONOMICS PROFESSOR [address] [place] [address] [email or web address] Social History Tobacco Use Types Packs/Day Years Used Date Smoking Tobacco: Never Smokeless Tobacco: Never Alcohol Use Standard Drinks/Week Comments Yes 1 (1 standard drink = 0.6 oz pur e alcohol) Education Answer Date Recorded Are you interested in more education? Not on vu e 2023 Are you concerned about learning? Not on file 2023 No 2023 No 2023 Digital Access Answer Date Recorded No 04/11/2023 No 04/11/2023 Reliable internet access at home? Not on file 04/11/2023 Device with a working camera? Not on file Sex and Gender Information Value Date Recorded Sex Assigned at Not on file Legal Sex Male 9:45 PM EST Gender Identity Male 09/19/2019 4:51 PM EST Sexual Orientation Not on file documented as of this encounter Plan of Treatment Not on file documented as of this encounter Procedures Procedure Name Priority Date/Time Associated Diagnosis Comments XR CHEST PA AND LATERAL 2 VIEWS Urgent/patient waiting 12/04/2024 10:25 AM EST Acute cough documented in this encounter Results * XR CHEST PA AND LATERAL 2 VIEWS (12/04/2024 10:25 AM EST) Anatomical Region Laterality Modality Chest Computed Radiogr aphy 12/04/2024 11:2 1 AM EST Impressions 12/04/2024 11:46 AM EST No acute abnormality. ATTESTATION: Josiane Evans as teaching physician, have reviewed the images for this case and if necessary edited the report originally created by Scot Victoria MD. Narrative 12/04/2024 11:46 AM EST XR CHEST PA AND LATERAL 2 VIEWS Referring clinician's provided indication for this examination in Epic: Cough; Infection COMPARISON: XR CHEST PA AND LATERAL 2 VIEWS FINDINGS: Devices/Tubes/Lines: None. Lungs: No focal consolidation or pulmonary edema. Pleura: No pleural effusion or pneumothorax. Heart/Mediastinum: Normal heart and mediastinum. Bones/Soft Tissues: No significant abnormality. Procedure Note Josiane Webb MD - 12/04/2024 XR CHEST PA AND LATERAL 2 VIEWS Referring clinician's provided indication for this examination in Epic:Cough; Infection COMPARISON: XR CHEST PA AND LATERAL 2 VIEWS FINDINGS: Devices/Tubes/Lines: None. Lungs: No focal consolidation or pulmonary edema. Pleura: No pleural effusion or pneumothorax. Heart/Mediastinum: Normal heart and mediastinum. Bones/Soft Tissues: No significant abnormality. IMPRESSION: No acute abnormality. ATTESTATION: Josiane Evans as teaching physician, have reviewed theimages for this case and if necessary edited the report originally createdby Scot Victoria MD. Alpa Archibald FOREST ECONOMICS PROFESSOR IMG XR CHEST Final Result documented in this encounter Visit Diagnoses Not on filedocumented in this encounter Additional Health Concerns Infection Onset Date Last Indicated Resolved Time CoV-Risk 12/04/2024 12/04/2024 12/15/2024 1:23 AM EST CoV-Risk 12/27/2024 12/27/2024 01/07/2025 1:22 AM EST Influenza B 12/27/2024 12/27/2024 01/03/2025 1:22 AM EST documented as of this encounter Care Teams Sample Body Builder Relationship Specialty Start Date End Date lA Zhao MD PCP - General Family Medicine 09/28/23 documented as of this encounter Additional Source Comments The information contained in this document represents components of the legal health record. It is not the complete legal health record.[facility]
--- OUTSIDE RECORDS SUMMARY | 2024-12-27 15:11 | XMS_ITS | Encounter Summary ---
Author Organization [facility] Address [address] [email or web address] [facility] [address] [place] [phone] Phone Care Team Providers Care General Manager Name Role Phone Al Zhao MD Primary Care Provider Encounter Details Date Type Department Care Team (Late st Contact Info) Description 12/27/2024 3:11 PM EST Hospital Encounter [facility] [address] [place] [phone] Laine Diaz, SENIOR GAMEMASTER [address] [place] [address] [email or web address] Social History Tobacco Use Types Packs/Day Years [...] PA AND LATERAL 2 VIEWS Urgent/patient waiting 12/27/2024 3:15 PM EST Cough documented in this encounter Results * XR CHEST PA AND LATERAL 2 VIEWS (12/27/2024 3:15 PM EST) Anatomical Region Laterality Modality Chest Computed Radiogr aphy 12/27/2024 3:23 PM EST Impressions 12/27/2024 3:23 PM EST No acute cardiopulmonary abnormality. Narrative 12/27/2024 3:23 PM EST XR CHEST PA AND LATERAL 2 VIEWS Referring clinician's provided indication for this examination in Epic: Cough COMPARISON: December 04, 2024 FINDINGS: Devices/Tubes/Lines: None. Lungs: No focal consolidation or pulmonary edema. Pleura: No pleural effusion or pneumothorax. Heart/Mediastinum: The size of the cardiac silhouette is within normal limits. Bones/Soft Tissues: The bony thorax is grossly intact. Procedure Note Karime Richard MD - 12/27/2024 XR CHEST PA AND LATERAL 2 VIEWS Referring clinician's provided indication for this examination in Epic:Cough COMPARISON: December 04, 2024 FINDINGS: Devices/Tubes/Lines: None. Lungs: No focal consolidation or pulmonary edema. Pleura: No pleural effusion or pneumothorax. Heart/Mediastinum: The size of the cardiac silhouette is within normallimits. Bones/Soft Tissues: The bony thorax is grossly intact. IMPRESSION: No acute cardiopulmonary abnormality. Laine Diaz SENIOR GAMEMASTER IMG XR CHEST Final R esult documented in this encounter Visit Diagnoses Not on filedocumented in this encounter Additional Health Concerns Infection Onset Date Last Indicated Resolved Time CoV-Risk 12/27/2024 12/27/2024 01/07/2025 1:22 AM EST Influenza B 12/27/2024 12/27/2024 01/03/2025 1:22 AM EST documented as of this encounter Care Teams General Manager Relationship Specialty Start Date End Date Al Zhao MD PCP - General Family Medicine 09/28/23 documented as of this encounter Additional Source Comments The information contained in this document represents components of the legal health record. It is not the complete legal health record.[facility]
--- OUTSIDE RECORDS SUMMARY | 2025-10-19 07:57 | XMS_ITS | Clinical Summary ---
Author Organization [facility] Address [address] [place] [address] Phone Care Team Providers Care Body Wirer Name Role Phone Al Zhao MD Primary Care Provider Allergies No known active allergies Medications dextroamphetamin e/amphetamine (ADDERALL ORAL) Take by mouth. Active dextroamphetamin e-amphetamine (ADDERALL) 30 mg Tab tablet Take 1 tablet by mouth 2 (two) times a day. 07/21/20 23 Active fluticasone propion/salmeter ol (ADVAIR DISKUS INHL) Inhale into the lungs. Active omeprazole (PRILOSEC) 20 MG capsule Take 20 mg by mouth daily. Active sertraline (ZOLOFT) 25 MG tablet Take 25 mg by mouth daily. Active albuterol 90 mcg/actuation inhalerIndicatio ns:Wheezing Inhale 2 puffs into the lungs every 6 (six) hours as needed for wheezing. 8 g 12/04/19 25 Active inhaler spacing device (AEROCHAMBER,MARGARITO ATHERITE) Spcr Inhale 1 each into the lungs every 4 (four) hours as needed. 1 each 12/04/19 25 Active sildenafiL (VIAGRA) 100 mg tablet 12/19/19 25 Active WEGOVY 1 mg/0.5 mL subcutaneous injection INJECT 1 PEN SUBCUTANEOUSLY ONCE A WEEK 08/07/20 25 Active Active Problems No known active problems Encounters Date Type Department Care Team Description 09/06/2025 8:40 AM EDT Office Visit [facility] [address] [address] Maddy oGnzales CNP Right acute suppurative otitis media (Primary Dx); Acute otitis externa of right ear, unspecified type from Last 3 Months Immunizations No known immunizations Social History Tobacco Use Types Packs/Day Years Used Date Smoking Tobacco: Never Smokeless Tobacco: Never Tobacco Cessation:Counseling Given: Not Answered Alcohol Use Standard Drinks/Week Comments Yes 1 [...] PM EST Sexual Orientation Not on file Last Filed Vital Signs Vital Sign Reading Time Taken Comments Blood Pressure 140/91 09/06/2025 8:41 AM EDT Pulse 68 09/06/2025 8:41 AM EDT Temperature 36.8 C (98.2 F) 09/06/2025 8:41 AM EDT Respiratory Rate 18 09/06/2025 8:41 AM EDT Oxygen Saturation 99% 09/06/2025 8:41 AM EDT Inhaled Oxygen Concentration - - Weight 93 kg (205 lb) 12/04/2024 9:21 AM EST Height 167.6 cm (5' 6 ) 12/04/2024 9:21 AM EST Body Mass Index 33.09 12/04/2024 9:21 AM EST Plan of Treatment Health Maintenance Due Date Last Done Comments Adult Td,Tdap Booster 1985 LIPID PANEL 1985 DEPRESSION SCREENING 1997 HEPATITIS C SCREENING 2003 HIV ONE-TIME SCREENING (18-6 5 YEARS) 2003 SCREENING FOR DIABETES 2020 INFLUENZA VACCINE (#1) 2025 COVID-19 VACCINE (2024-2 6 season) 2025 09/09/2021 SMOKING STATUS SCREENING (On ce After 26 Yrs) Completed 09/06/2025 HEPATITIS A VACCINES Aged Out No long er eligible based on patient's age to complete this topic HIB VACCINES Aged Out No longer eligi ble based on patient's age to complete this topic MENINGOCOCCAL VACCINES (ACWY) Aged Out No longer eligible based on patient's age to complete this topic MENINGOCOCCAL VACCINES (B) Aged Out N o longer eligible based on patient's age to complete this topic PNEUMOCOCCAL VACCINES (0-49 years) Aged Out No longer eligible based on patient's age to complete this topic Medical Devices Not on file Insurance PPO PPO [facility] OUT OF STATE PPO BLUE [place] OUT OF [facility] PPO [facility] OUT OF [facility] PPO [facility] OUT OF STATE PPO Care Teams Body Wirer Relationship Specialty Start Date End Date Al Zhao MD PCP - General Family Medicine 09/28/23 Additional Source Comments The information contained in this document represents components of the legal health record. It is not the complete legal health record.[facility]
--- NOTE | 2025-10-19 08:32 | PFT_ITS ---
Indication: Asthma Spirometry FEV1 to FVC 79%; FEV1 3.12 L. ; FVC 3.96 L. No significant response to bronchodilators noted. Of note the FEF 25-75 decrease to 51% predicted Lung Volumes Total lung capacity 95% predicted; residual volume 127% predicted Diffusion Capacity DLCO 107% predicted Methacholine Challenge [] Flow Volume Loops Slight concavity to the expiratory limb suggestive of an obstructive physiology MVV [97% predicted] Comparison None Interpretation No obstructive nor restrictive ventilatory defects identified. No significant response to bronchodilators noted. There is evidence of small airways disease suggestive with a diagnosis of asthma. Maximum voluntary ventilation is within normal limits. Lung volumes with significant air trapping also likely secondary to the small airways disease. Diffusing capacity is within normal limits. If asthma is in the differential methacholine challenge may be helpful in assessing for hyperreactive airways. Otherwise, clinical correlation warranted. MTDD
[2025-10-19 08:34] VITALS: PULSE 81
== END 2025-10-19 07:55 | disposition home or self-care (01) ==
LOC: HO.RESP 07:54
PROVIDERS: PCP Family Medicine; Visit Provider Nurse Practitioner Family
DX: J45.909 Unspecified asthma, uncomplicated (principal); Z87.891 Personal history of nicotine dependence
CPT/HCPCS: 94060; 94640; 94727; 94729

== ENCOUNTER → 2025-10-19 08:32 | Outpatient (BNV) | payer BC, SELFPAY | PROVIDERS: PCP Family Medicine; Visit Provider Hospitalist | DX: J45.909 Unspecified asthma, uncomplicated (principal) | CPT/HCPCS: 94060; 94727; 94729 ==